=== PATIENT | male | born 1945 | race Caucasian/White ===

== ENCOUNTER → 2017-07-08 | Outpatient (CLI) | payer MEDICARE, OTHER ==
[~2017-07-08] MED LIST: ASPI-630 PO; BEVA25VI IV; DIGO0.12 PO; WARF1TAB74 PO
--- NOTE | 2017-07-08 09:16 | RAD ---
Examination: 2 views of the chest History: History of chest ingestion Comparison: 10/09/2069 Findings: Unchanged cardiomegaly. Mild prominent appearing bilateral interstitial lung markings likely congestive changes or interstitial infiltrates identified. Small bilateral pleural effusions. Impression: 1. Prominent appearing interstitial lung markings likely congestive changes or interstitial infiltrates with small bilateral pleural effusions.
== END | disposition home or self-care (01) ==
LOC: DXRADRC 07:47
PROVIDERS: ATTEND Physician Assistant Medical
DX: I51.7 Cardiomegaly (principal); J90 Pleural effusion, not elsewhere classified; R05 Cough
CPT/HCPCS: 71020

== ENCOUNTER → 2017-08-04 | Outpatient (CLI) | payer MEDICARE, OTHER ==
--- NOTE | 2017-08-04 09:12 | RAD ---
EXAM: Chest 2 views. HISTORY: Hemoptysis, smoking history. COMPARISON: 07/08/2017. FINDINGS: Frontal and lateral views of the chest are obtained. There are small bilateral pleural effusions with bibasilar atelectasis or infiltrate. Previously noted interstitial infiltrates are improved. Chronic obstructive pulmonary disease is again noted. There is no pneumothorax. The heart is mildly to moderately enlarged. There are atherosclerotic calcifications of the aorta. Small radiopaque foreign bodies project along the right chest. IMPRESSION: 1. Small bilateral pleural effusions with right greater than left basilar atelectasis or infiltrate. 2. Chronic obstructive pulmonary disease. 3. Mild to moderate cardiomegaly.
== END | disposition home or self-care (01) ==
LOC: DXRAD 08:23
PROVIDERS: ATTEND Physician Assistant Medical
DX: J44.9 Chronic obstructive pulmonary disease, unspecified (principal); I51.7 Cardiomegaly; J90 Pleural effusion, not elsewhere classified; I70.0 Atherosclerosis of aorta; Z87.891 Personal history of nicotine dependence
CPT/HCPCS: 71020

== ENCOUNTER 2020-06-20 17:02 | Inpatient (IN) | payer MEDICARE, OTHER ==
[~2020-06-20] VITALS: Ht 167.6 cm; Wt 70.5 kg
[~2020-06-20 17:02] MED LIST changes: -DIGO0.12 PO; +DIGO50SO PO; +WARF1TAB2 PO; -WARF1TAB74 PO
[2020-06-20] MEDS ORDERED: IOHEXOL 350 MG/ML 100 ML VIAL. IV ONE (18:00)
[2020-06-20] MEDS ORDERED: ASPIRIN 325 MG TABLET PO ONE (18:00)
[2020-06-20] MEDS ORDERED: DEXAMETHASONE SOD PHOS 10 MG/ML VIAL. IV ONE (18:05)
[2020-06-20] MEDS ORDERED: CONTRAST GIVEN. MC PRN (18:15)
--- NOTE | 2020-06-20 18:29 | PHYS DOC ---
Past History Past Medical History: A-Fib, Cancer, CHF, COPD, High Cholesterol, Heart Disease Additional Past Medical Histor: Lung cancer, bladder cancer, right sided pleural effusion Past Surgical History: Cancer Surgery, Cholecystectomy Additional Past Surgical Histo: Defibrillator, angioplasty, thorocentesis Smoking: Cigarettes Alcohol Use: Sober Drug Use: None General Adult EDM: Chief Complaint: SHORTNESS OF BREATH HPI: HPI: Patient is a 75-year-old male with a history of CHF, afib on Xarelto, COPD, and lung cancer who presents to the emergency department with shortness of breath that started around 4 PM today. Patient states he was sitting in his couch at the time when it started. He denies any fevers, chest pain, or cough. He is known to have fluid in his right lung, which was seen on a CT scan done 2 months ago and this is being followed by Dr. 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 He states he had a thoracentesis performed 4 years ago where they removed 1 L of fluids from the right side. Denies any recent exposure to COVID, recent travel, or recent surgery. Review of Systems: Review of Systems: Constitutional: Denies fever or chills Eyes: Denies redness or eye pain HENT: Denies nasal congestion or sore throat, reports rhinitis Respiratory: Denies cough, reports shortness of breath Cardiovascular: Denies chest pain or palpitations GI: Denies abdominal pain, nausea, or vomiting : Denies dysuria or hematuria Musculoskeletal: Denies back pain or joint pain, reports bilateral edema in lower extremities and chronic peripheral neuropathy in the soles of both feet Integument: Denies rash or skin lesions Neurologic: Denies headache, focal weakness, reports bilateral chronic peripheral neuropathy in his feet Complete systems were reviewed and found to be within normal limits, except as documented in this note. Heart Score: HEART Score for Chest Pain: HEART Score for Chest Pain Response (Comments) Value History Slighlty/Non-Suspicious 0 ECG Normal 0 Age > 65 2 Risk Factors >3 Risk Factors or Hx CAD 2 Troponin < Normal Limit 0 Total 4 Risk Factors: Risk Factors: DM, Current or recent (<one month) smoker, HTN, HLP, family history of CAD, obesity. Risk Scores: Score 0 - 3: 2.5% MACE over next 6 weeks - Discharge Home Score 4 - 6: 20.3% MACE over next 6 weeks - Admit for Clinical Observation Score 7 - 10: 72.7% MACE over next 6 weeks - Early Invasive Strategies Current Medications: Current Meds: Current Medications Medications (Trade) Dose Ordered Sig/Dewey Start Time Stop Time Status Last Admin Dose Admin Aspirin (Pao Aspirin) 325 mg 1X ONCE 06/20/20 18:00 06/20/20 18:05 DC Dexamethasone Sodium Phosphate (Decadron) 10 mg 1X ONCE 06/20/20 18:05 06/20/20 18:06 DC Info (Do NOT chart on this entry -- for MONITORING) 1 each PRN DAILY PRN 06/20/20 18:15 06/22/20 18:14 Iohexol (Omnipaque 350 Mg/ml) 100 ml 1X ONCE 06/20/20 18:00 06/20/20 18:05 DC Allergies: Allergies: Allergies Coded Allergies Type Severity Reaction Last Updated Verified influenza virus vaccine, specific Allergy Intermediate 06/20/20 Yes varenicline Allergy Unknown Unknown 06/20/20 Yes Physical Exam: PE: Constitutional: Well developed, elderly, cachetic, no acute distress, non-toxic appearance HENT: Normocephalic, atraumatic Eyes: Conjunctiva normal, no discharge Neck: Normal range of motion, no tenderness, supple Lungs & Thorax: No respiratory distress, equal chest rise and fall, crackles heard in right lower lobe, diffuse wheezing heard in lungs bilaterally Abdomen: Soft, no tenderness Skin: Warm, dry, no erythema, no rash Extremities: No tenderness, ROM intact, pitting edema to bilateral lower extremities, dorsalis pedis pulse 3/4 bilaterally Neurologic: Alert and oriented X 3, normal motor function, normal sensory function, no focal deficits noted Psychologic: Affect normal, judgment normal Current Patient Data: Vital Signs: Vital Signs Date Time Temp Pulse Resp B/P (MAP) Pulse Ox O2 Delivery O2 Flow Rate FiO2 06/20/20 17:42 98.6 96 28 122/64 (83) 96 Room Air EKG: EKG: @1833 NSR at 96bpm with frequent PVCs, NO ST elevation, QRS 86ms, QT/QTc 362/458ms Radiology/Procedures: Radiology/Procedures: PROCEDURE: CHEST PA & LATERAL Two-view chest dated 06/20/2020. Comparison made to 08/04/2017. Clinical data indication: Coughing up blood. FINDINGS: PA and lateral views obtained. Heart size mildly enlarged, stable. There is been interval placement of dual lead left subclavian pacer/AICD. Patchy and linear perihilar opacities are similar to prior study. There is blunting of the right costophrenic sulcus, unchanged. No pneumothorax. IMPRESSION:. 1. Perihilar airspace disease, similar to prior study. This could be related to chronic changes or recurrent pneumonia. 2. Small right pleural effusion versus chronic pleural thickening. Electronically signed by: Prasanth Garner MD (06/20/2020 8:53 PM) [facility] [place] SIGNED BY: PRASANTH GARNER MD DATE: 06/20/202052 Course & Med Decision Making: Course & Med Decision Making Pertinent Labs and Imaging studies reviewed. (See chart for details) Patient is a 75-year-old male with a history of CHF, A. fib, COPD, and lung cancer who presents to the emergency department with shortness of breath that started today. I highly suspect patient presents with an exacerbation of his CHF, which may have contributed to the fluid build up in his right lung. Labs showed elevated BNP, lactic acidosis, anemia, and renal insufficiency (unclear baseline given lack of prior labs per [facility] review). Bumex provided. ASA given. Will trend troponins. Hypomagnesemia addressed. Patient requiring admission for further evaluation and treatment. Discussed with Dr. Petersen (hospitalist) who is in agreement with admission. Discussed findings and plan with patient, who acknowledges understanding and agreement. Joyce Disclaimer: Joyce Disclaimer: This electronic medical record was generated, in whole or in part, using a voice recognition dictation system. Departure Departure: Impression: Primary Impression: Dyspnea Qualified Codes: R06.00 - Dyspnea, unspecified Additional Impressions: COPD (chronic obstructive pulmonary disease) Qualified Codes: J44.9 - Chronic obstructive pulmonary disease, unspecified Pleural effusion Hypomagnesemia Lactic acidosis Anemia Qualified Codes: D64.9 - Anemia, unspecified Renal insufficiency Disposition: ADMITTED INPATIENT Admitting Physician: Sary Petersen Condition: STABLE Referrals: TAM LING (PCP) PRASANTH KAHN DO Jun 20, 2020 18:29
[2020-06-20 18:48] LABS: CALCIUM 8.9 mg/dL (8.5-10.1); CREATININE 1.9 mg/dL (0.7-1.3); GFR 34.5; POTASSIUM 4.3 mmol/L (3.5-5.1)
[2020-06-20 19:00] LABS: BASO % 1 % (0-3); EOS % 0 % (0-3); HEMATOCRIT 32.2 % (39.0-53.0); HEMOGLOBIN 9.5 g/dL (13.0-17.5); LYMPH % 19 % (24-48); MEAN CORPUSCULAR HEMOGLOBIN 22 pg (25-35); MEAN CORPUSCULAR HGB CONC 30 g/dL (31-37); MEAN CORPUSCULAR VOLUME 73 fL (79-100); MONO # 0.9 x10^3/uL (0.0-1.1); MONO % 17 % (0-9); NEUT # 3.3 x10^3uL (1.8-7.7); NEUT % 63 % (31-73); PLATELET COUNT 156 x10^3/uL (140-400); RED BLOOD COUNT 4.43 x10^6/uL (4.30-5.70); RED CELL DISTRIBUTION WIDTH 20.5 % (11.5-14.5); WHITE BLOOD COUNT 5.2 x10^3/uL (4.0-11.0)
[2020-06-20 19:04] LABS: ALBUMIN 3.1 g/dL (3.4-5.0); ALBUMIN/GLOBULIN RATIO 0.9 (1.0-1.7); MAGNESIUM 1.6 mg/dL (1.8-2.4); TOTAL BILIRUBIN 0.8 mg/dL (0.2-1.0); TOTAL PROTEIN 6.6 g/dL (6.4-8.2)
[2020-06-20] MEDS ORDERED: MAGNESIUM SULFATE 2GM 50 ML IV ONE (19:30)
[2020-06-20 20:29] LABS: ANISOCYTOSIS MOD; HYPOCHROMIA SLIGHT; PLT ESTIMATE ADEQUATE (ADEQUATE)
[2020-06-20 20:30] LABS: MICROCYTOSIS SLIGHT
--- NOTE | 2020-06-20 20:55 | RAD ---
Two-view chest dated 06/20/2020. Comparison made to 08/04/2017. Clinical data indication: Coughing up blood. FINDINGS: PA and lateral views obtained. Heart size mildly enlarged, stable. There is been interval placement of dual lead left subclavian pacer/AICD. Patchy and linear perihilar opacities are similar to prior study. There is blunting of the right costophrenic sulcus, unchanged. No pneumothorax. IMPRESSION:. 1. Perihilar airspace disease, similar to prior study. This could be related to chronic changes or recurrent pneumonia. 2. Small right pleural effusion versus chronic pleural thickening. Electronically signed by: Prasanth Garner MD (06/20/2020 8:53 PM) [facility]
--- NOTE | 2020-06-20 21:03 | EKG ---
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
[2020-06-20] MEDS ORDERED: BUMETANIDE 1 MG/4 ML VIAL. IVP ONE (22:00)
[2020-06-20 22:07] LABS: BILIRUBIN,URINE NEG (NEG); CLARITY,URINE CLEAR; COLOR,URINE YELLOW; GLUCOSE,URINE NEG (NEG)
[2020-06-20 22:08] LABS: BACTERIA,URINE 0 /HPF (0-FEW); NITRITE,URINE NEG (NEG); RBC,URINE 0 /HPF (0-2); WBC,URINE OCC /HPF (0-4)
[2020-06-20] MEDS ORDERED: ONDANSETRON PF 4 MG/2 ML VIAL. IVP PRN (22:15)
[2020-06-20] MEDS ORDERED: ACETAMINOPHEN 325 MG TABLET PO PRN (22:15)
[2020-06-20 23:56] VITALS: BP 94/59
--- NOTE | 2020-06-21 03:55 | NUR ---
The patient, OMA AKBAR, 75 y/o, M admitted by GRANT FLORES MD, was given written information regarding hospital policies, unit procedures and contact persons. Valuables were checked and noted. PT presented with increased SOB. PT states he had a thoracentesis years ago and feels the same way now. PT with multiple falls in the past month. PT states he broke his nose on a fall last week. PT uses a walker on occasion at home. Walker placed in room. PT states his falls are the result of "spacing out" and coming back during the fall. PT has a referral to Neurology for this placed by PCP as an outpatient; referral made 06/19 according to PT. Reviewed with PT his PMH, PSH, FH, SH and medications. PT unsure of current medications and asked for us to telephone his son. Expressed we will be able to do that this morning. PT states he has restless legs and can only get 1-2 hours of sleep at a time with the need to stand to relieve this.
[2020-06-21 05:19] VITALS: BP 100/67
[2020-06-21] MEDS ORDERED: IV NORMAL SALINE 1,000ML 1,000 ML IV ONE (07:00)
[2020-06-21] MEDS ORDERED: AZITHROMYCIN 250 MG TABLET. PO ONE (07:00)
[2020-06-21] MEDS ORDERED: IV NORMAL SALINE 1,000ML 1,000 ML IV SCH (08:00)
[2020-06-21] MEDS: IPRATRPIUM/ALBUTEROL 0.5/2.5MG 3 ML NEBU. NEB SCH ×5 (08:00→20:00)
[2020-06-21 10:36] VITALS: BP 97/60
[2020-06-21] MEDS ORDERED: RIVA20TA2 PO (10:52)
[2020-06-21] MEDS ORDERED: FURO20TA3 PO (10:52)
[2020-06-21] MEDS ORDERED: TAMS0.4C97 PO (10:52)
[2020-06-21] MEDS ORDERED: ROPI0.254 PO (10:52)
[2020-06-21] MEDS ORDERED: DICY10CA3 PO (10:52)
[2020-06-21] MEDS ORDERED: BUPR150T11 PO (10:52)
[2020-06-21] MEDS ORDERED: ATORVASTATIN CA80 MG PO (10:52)
[2020-06-21] MEDS ORDERED: FINA5TAB4 PO (10:52)
[2020-06-21] MEDS ORDERED: BISA5TAB4 PO (10:52)
[2020-06-21] MEDS ORDERED: LISI2.5T PO (10:52)
[2020-06-21] MEDS ORDERED: DIGO125T17 PO (10:52)
[2020-06-21] MEDS ORDERED: MV-M1TAB7 PO (10:52)
[2020-06-21] MEDS ORDERED: IBUP400T18 PO (10:52)
[2020-06-21] MEDS ORDERED: MELA3TAB4 PO (10:52)
[2020-06-21] MEDS ORDERED: EZET10TA20 PO (10:52)
[2020-06-21] MEDS: LORazepam 0.5 MG TABLET PO PRN ×2 (12:35→21:33)
--- NOTE | 2020-06-21 12:39 | NUR ---
NURSING NOTE PT C/O BEING ANXIOUS, SHAKING, AND STATES AT HOME HE GETS THIS WAY AND THEN CANT BREATHE, STATES HE KNEELS ON THE FLOOR UNTIL IT PASSES. DR FLORES NOTIFIED. ORDERS OBTAINED TO GIVE ATIVAN 0.5MG BY MOUTH PRN Q6 HOURS AND TO ORDER VENOUS DOPPLER BILATERAL BECAUSE PT DID COMPLAIN OF LEG PAIN TO THIS NURSE THIS AM. WILL CONTINUE TO MONITOR. AL SINGLETON.
[2020-06-21] MEDS ORDERED: methylPREDNISolone SOD SUCC PF 40 MG/ML VIAL. IV SCH (14:00)
[2020-06-21 14:25] VITALS: BP 90/59
--- NOTE | 2020-06-21 16:22 | RAD ---
VENOUS LOWER EXT BILATERAL History: Reason: PAIN, SWELLING / Spl. Instructions: / History: Comparison: None. Discussion: Multiple longitudinal and transverse high resolution real-time images of the venous system of bilateral lower extremity were obtained with color and Doppler sampling. The common femoral, superficial femoral, popliteal and proximal calf veins are all patent and demonstrate normal flow and compressibility. Normal respiratory phasicity and augmentation is present. Calf veins are poorly visualized due to lower extremity subcutaneous edema. Impression: 1. No evidence of deep vein thrombosis. Electronically signed by: Praveen Willoughby DO (06/21/2020 4:19 PM) [id number]
[2020-06-21] MEDS: RIVAROXABAN 10 MG TABLET. PO SCH (16:39)
--- NOTE | 2020-06-21 17:58 | HP ---
ADMIT DATE: 06/20/2020 HISTORY OF PRESENT ILLNESS: The patient is a 75-year-old male patient who presented to the Emergency Room with complaint of shortness of breath that started around 04:00 p.m. yesterday afternoon, he stated that ____ was sitting in his couch at the time it started. He denies any fever, chest pain or cough. 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 He states he had had thoracentesis performed 4 years ago where they removed 1 liter of fluid from the right side. He denied any recent exposure to COVID, recent travel or recent surgery. He was extensively investigated in the Emergency Room, has had lab work as well as imaging studies. His chest x-ray showed the patient has perihilar airspace disease similar to prior study. This could be related to chronic changes or recurrent pneumonia, small right-sided pleural effusion versus chronic pleural thickening. The patient was admitted with dyspnea, chronic obstructive pulmonary disease, hypomagnesemia, lactic acidosis, anemia, and renal insufficiency. PAST MEDICAL HISTORY: Significant for congestive heart failure, chronic obstructive pulmonary disease, hyperlipidemia, lung cancer, bladder cancer, chronic right-sided pleural effusion, atrial fibrillation. PAST SURGICAL HISTORY: Significant for transurethral resection of the bladder cancer twice and cholecystectomy. He has also had defibrillation, AICD, angioplasty as well as thoracentesis. 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 He did have also a colonoscopy and bronchoscopy. ALLERGIES: HE IS ALLERGIC TO FLU SHOT AND CHANTIX, HAS BECOME VIOLENT TWICE WHENEVER HE TRIED IT. MEDICATIONS: He is currently on following medications: He is on dicyclomine 10 mg as needed daily, tamsulosin 0.4 mg at bedtime, rivaroxaban 20 mg daily, digoxin 0.25 mg once a day. He is on Zetia 10 mg once a day, atorvastatin 80 mg at bedtime, lisinopril 2.5 mg once a day, ibuprofen 400 mg 3 times a day, Wellbutrin 150 mg twice a day, ropinirole 0.5 mg at bedtime, furosemide 20 mg twice a day, bisacodyl 5 mg daily, vitamin D3 1 tablet once a day, finasteride 5 mg daily, and melatonin 3 mg at bedtime. FAMILY HISTORY: He has 4 brothers and 4 sisters. Father at the age of 39 because of myocardial infarction. Mother at age of 52 because of motor vehicle accident. SOCIAL HISTORY: He is , currently lives with his son. He used to smoke 1-1/2 pack a day, now he smokes only 1 pack a day. He does not drink alcohol or use recreational drugs. He worked in the [employer] for 29 years. He also worked for [employer] for 18 years. He is currently retired. REVIEW OF SYSTEMS: As per history of present illness. PHYSICAL EXAMINATION: GENERAL: On arrival to the Emergency Room, the patient was somewhat tachypneic and pale, but no jaundice, cyanosis or thyromegaly. No jugular venous distention. No lower limb edema. VITAL SIGNS: His heart rate on arrival was 96, blood pressure was 122/64, temperature was 98.6, respiratory rate was 28 and oxygen saturation was 96%. HEAD, EYES, EARS, NOSE AND THROAT: Showed normocephalic, atraumatic. NECK: Supple. HEART: Showed normal first and second heart sounds. No gallop, rub or murmur. CHEST: Clear to auscultation. No crepitation or rhonchi. ABDOMEN: Distended, soft, nontender. No guarding or rigidity. No organomegaly. All hernial orifices intact. Bowel sounds normal. NEUROLOGIC: He was awake, alert, responding appropriately. All cranial nerves intact. EXTREMITIES: He moves extremities without difficulty. LABORATORY DATA: His lab work on arrival showed a white cell count of 5200, hemoglobin 9.5, hematocrit 32, MCV 73, and platelet count of 156,000. Serum sodium was 138, potassium 4.3, chloride 101, bicarbonate 27, anion gap of 10, BUN 37, creatinine 1.9, estimated GFR was at 34 mL per minute. His glucose 124, lactic acid was 2.8, calcium was 8.9, magnesium was 1.6. Total bilirubin and alkaline phosphatase normal. AST, ALT slightly elevated. Beta-natriuretic peptide was 11,943. Total protein was 6.6, albumin 3.1. Troponin was 0.040. His prothrombin time was 14.7, INR 1.4, aPTT was 27. Urinalysis was essentially unremarkable. His chest x-ray showed the patient has perihilar airspace disease similar to prior study. This could be related to chronic changes of recurrent pneumonia, small right-sided pleural effusion versus chronic pleural thickening. ASSESSMENT AND PLAN: The patient was admitted and was started on ceftriaxone as well as Zithromax. I reconciled all his medication. We did give him IV fluid together with methylprednisolone, albuterol, and Atrovent and ____ severe anxiety; in fact, he was admitted initially without any steroids or albuterol. We will monitor him closely and decide on further management accordingly. GRANT FLORES MD DR: CASSI/harmony JOB#: [id number] / [id number]
[2020-06-21 19:15] VITALS: BP 93/67
[2020-06-21] MEDS: rOPINIRole 0.25 MG TABLET. PO SCH (21:00)
[2020-06-21] MEDS: MELATONIN 3 MG TABLET PO SCH (21:31)
[2020-06-21] MEDS: LACTOBACILLUS RHAMNOSUS GG 1 CAPSULE. PO SCH (21:31)
[2020-06-21] MEDS: TAMSULOSIN 0.4 MG CAP.ER.24H. PO SCH (21:32)
[2020-06-21] MEDS: ATORVASTATIN CALCIUM 20 MG TABLET PO SCH (21:32)
[2020-06-21] MEDS: buPROPion SR 150 MG TABLET.SA PO SCH (21:32)
[2020-06-21 22:45] VITALS: BP 116/81
--- NOTE | 2020-06-21 22:51 | PN ---
DATE: 06/21/2020 SUBJECTIVE: The patient is sitting on the edge of the bed comfortably, in no apparent respiratory distress. He did have severe anxiety this morning and he apparently has had these episodes before. We did give him some Ativan and that really helped him down. When I saw him, he was sitting in his chair comfortably in no apparent respiratory distress. PHYSICAL EXAMINATION: GENERAL: He was pale, but no jaundice, cyanosis or thyromegaly. No jugular venous distention or limb edema. VITAL SIGNS: His heart rate was 92, blood pressure was 97/60, temperature 98.2, respiratory rate 24 and oxygen saturation was 96% on room air. HEAD, EYES, EARS, NOSE AND THROAT: Showed normocephalic, atraumatic. NECK: Supple. HEART: Showed normal first and second heart sounds. No gallop, rub or murmur. CHEST: Shows central trachea, equal bilateral expansion, air entry. Dull percussion noted and absent breath sounds posteriorly on the right side mostly. I could not really appreciate any crepitation or rhonchi. ABDOMEN: Distended, soft, nontender. NEUROLOGIC: He was awake, alert, responding appropriately. LABORATORY DATA: No lab works were done this morning. ASSESSMENT: 1. Probably Community-acquired pneumonia. 2. Chronic obstructive pulmonary disease exacerbation. 3. Acute on chronic congestive heart failure. 4. Lactic acidosis. 5. He has atrial fibrillation, rate controlled, well anticoagulated. 6. He has lung cancer, he was diagnosed in 03/2019 and was treated initially with radiation therapy x 6 and has been receiving chemotherapy once every 4 weeks. The last one was about 3 weeks ago. 7. He has had also history of bladder cancer treated with the surgical resection twice and has persistent or chronic right-sided pleural effusion. PLAN: My plan is to discontinue the steroids and bronchodilators for some reason they induce severe anxiety in him. Continue with IV antibiotic. Continue with all his other medications. GRANT FLORES MD DR: CASSI/harmony JOB#: [id number] / [id number]
[2020-06-22] MEDS: IPRATRPIUM/ALBUTEROL 0.5/2.5MG 3 ML NEBU. NEB SCH (05:31)
[2020-06-22 05:42] VITALS: BP 89/66
[2020-06-22 06:59] LABS: HEMATOCRIT 28.5 % (39.0-53.0); HEMOGLOBIN 8.4 g/dL (13.0-17.5); RED BLOOD COUNT 3.88 x10^6/uL (4.30-5.70); RED CELL DISTRIBUTION WIDTH 20.4 % (11.5-14.5); WHITE BLOOD COUNT 10.1 x10^3/uL (4.0-11.0)
[2020-06-22 07:22] LABS: ALBUMIN 2.9 g/dL (3.4-5.0); CALCIUM 8.6 mg/dL (8.5-10.1); CREATININE 1.7 mg/dL (0.7-1.3); GFR 39.3; POTASSIUM 4.3 mmol/L (3.5-5.1); TOTAL BILIRUBIN 0.6 mg/dL (0.2-1.0); TOTAL PROTEIN 5.9 g/dL (6.4-8.2)
[2020-06-22] MEDS ORDERED: LISINOPRIL 2.5 MG TABLET PO SCH (09:00)
[2020-06-22] MEDS ORDERED: NON FORMULARY ITEM (Mv-Mn/Iron/Fa/Herbal Cmplx#190 (Vitamin D3 Complete Caplet) 1 EACH) PO SCH (09:00)
[2020-06-22] MEDS: buPROPion SR 150 MG TABLET.SA PO SCH ×2 (10:12→21:36)
[2020-06-22] MEDS: BISACODYL TAB 5 MG TABLET.DR. PO SCH (10:13)
[2020-06-22] MEDS: AZITHROMYCIN 250 MG TABLET. PO SCH (10:13)
[2020-06-22] MEDS: FINASTERIDE 5 MG TABLET. PO SCH (10:13)
[2020-06-22] MEDS: EZETIMIBE 10 MG TABLET PO SCH (10:13)
[2020-06-22] MEDS: LACTOBACILLUS RHAMNOSUS GG 1 CAPSULE. PO SCH ×2 (10:13→21:36)
[2020-06-22] MEDS: POLYETHYLENE GLYCOL 3350 17 GM PACKET. PO SCH (10:49)
[2020-06-22 10:51] VITALS: BP 94/62
[2020-06-22 14:16] VITALS: BP 92/61
[2020-06-22] MEDS: RIVAROXABAN 10 MG TABLET. PO SCH (16:45)
[2020-06-22 19:00] VITALS: BP 94/61
[2020-06-22] MEDS ORDERED: BISACODYL TAB 5 MG TABLET.DR. PO PRN (19:00)
--- NOTE | 2020-06-22 19:49 | PN ---
DATE: 06/22/2020 SUBJECTIVE: The patient is sitting at the edge of the bed comfortably, complaining of just being cold. He continued to have cough that is mostly dry, hacking, and nonproductive. Denied any chest pain. He continued to complain of weakness and shortness of breath. His blood pressure unfortunately is very borderline and so we could not give him any Lasix. PHYSICAL EXAMINATION: GENERAL: When I examined him this afternoon, he looked pale, but no jaundice, cyanosis or thyromegaly. No jugular venous distention. No limb edema. VITAL SIGNS: His heart rate was 86, blood pressure was 92/61, temperature was 97, respiratory rate was 24, and oxygen saturation was 92% on room air. HEAD, EYES, EARS, NOSE AND THROAT: Showed normocephalic, atraumatic. NECK: Supple. CARDIAC: Normal first and second heart sounds. No gallop, rub or murmur. CHEST: Shows central trachea, good bilateral chest expansion, air entry anteriorly. There are decreased breath sounds and chest expansion. Dull percussion noted and absent breath sounds on the right side posteriorly. ABDOMEN: Distended, soft, nontender. NEUROLOGIC: He was grossly intact. His intake was incompletely recorded as well as his output. LABORATORY DATA: Her lab work this morning showed a serum sodium 136, potassium 4.3, chloride 102, bicarbonate 23, anion gap of 11, BUN 51, and creatinine was 1.7. His estimated GFR was 39 mL per minute. His glucose was 96, lactic acid was 3.4, and calcium was 8.6. Total bilirubin and alkaline phosphatase are normal. AST and ALT were elevated and rising. His beta natriuretic peptide was 11,517. He has 3 sets of troponin that was elevated at 0.040, 0.042 and 0.041. His chest x-ray showed that he has perihilar airspace disease similar to prior studies could be related to chronic change or recurrent pneumonia, small right sided pleural effusion versus chronic pleural thickening. The patient said that he has had a thoracentesis about 4 years ago where they drained about 1 liter and has not had any thoracentesis since then. ASSESSMENT: 1. Probably Community-acquired pneumonia. 2. Chronic obstructive pulmonary disease exacerbation. 3. Acute on chronic congestive heart failure. 4. Lactic acidosis. 5. Atrial fibrillation, rate controlled, well anticoagulated. 6. He has lung cancer was diagnosed in 03/2019 and was treated initially with radiation therapy x 6, has been receiving chemotherapy once every 4 weeks. The last one was about 3 weeks ago. 7. History of bladder cancer treated with surgical resection twice. 8. He has persistent chronic sided pleural effusion. PLAN: I discontinued his steroids and bronchodilators as they induced severe anxiety in him. Continue with IV antibiotic. I will discontinue his lisinopril. I will consult the Cardiology to assist with the management. GRANT FLORES MD DR: CASSI/harmony JOB#: [id number] / [id number]
[2020-06-22] MEDS: rOPINIRole 0.25 MG TABLET. PO SCH (21:36)
[2020-06-22] MEDS: LORazepam 0.5 MG TABLET PO PRN (21:36)
[2020-06-22] MEDS: MELATONIN 3 MG TABLET PO SCH (21:36)
[2020-06-22] MEDS: TAMSULOSIN 0.4 MG CAP.ER.24H. PO SCH (21:36)
[2020-06-22] MEDS: ATORVASTATIN CALCIUM 20 MG TABLET PO SCH (21:36)
[2020-06-23 00:01] VITALS: BP 90/57
--- NOTE | 2020-06-23 03:49 | NUR ---
PT UP IN CHAIR FOR ASSESSMENT AND MEDICATION ADMINISTRATION. PT WAS COMPLAINT AND COOPERATIVE THIS HS. PT HAD CONCERNS ABOUT HIS COUGH. RN EDUCATED PT ON DRINKING ENOUGH WATER TO HELP THIN MUCOUS IN HIS CHEST. PT STATED TO RN HE IS DRINKING PLENTY OF FLUIDS. PT DID HAVE AN INTERMITTENT COUGH THROUGH THE NIGHT. PT IS CURRENTLY RESTING IN BED. WILL CONTINUE TO MONITOR.
[2020-06-23 06:16] VITALS: BP 93/69
[2020-06-23 07:17] LABS: CREATININE 1.5 mg/dL (0.7-1.3); GFR 45.4; POTASSIUM 4.5 mmol/L (3.5-5.1)
[2020-06-23] MEDS: AZITHROMYCIN 250 MG TABLET. PO SCH (08:57)
[2020-06-23] MEDS: buPROPion SR 150 MG TABLET.SA PO SCH ×2 (08:57→22:23)
[2020-06-23] MEDS: LACTOBACILLUS RHAMNOSUS GG 1 CAPSULE. PO SCH ×2 (08:57→22:23)
[2020-06-23] MEDS: BISACODYL TAB 5 MG TABLET.DR. PO SCH (08:58)
[2020-06-23] MEDS: EZETIMIBE 10 MG TABLET PO SCH (08:58)
[2020-06-23] MEDS: POLYETHYLENE GLYCOL 3350 17 GM PACKET. PO SCH (08:58)
[2020-06-23] MEDS: FINASTERIDE 5 MG TABLET. PO SCH (08:58)
[2020-06-23 11:04] VITALS: BP 87/59
--- NOTE | 2020-06-23 13:28 | PN ---
DATE: 06/23/2020 SUBJECTIVE: The patient is sitting on the edge of the bed, eating his lunch comfortably, in no apparent distress. He is now complaining of swelling of his scrotum and his penis as well as continued swelling of both legs. Unfortunately, even despite stopping his lisinopril, his blood pressure is only 87/59, although the patient himself did not complain of any dizziness and that obviously precludes our ability to give him any Lasix. PHYSICAL EXAMINATION: GENERAL: When I examined him this afternoon, he looked pale, but no jaundice, cyanosis or thyromegaly. No jugular venous distention. No limb edema. VITAL SIGNS: His heart rate was 74, blood pressure was 87/59, temperature was 97.6, respiratory rate was 16, and oxygen saturation was 91% on room air. HEAD, EYES, EAR, NOSE, AND THROAT: Showed normocephalic, atraumatic. NECK: Supple. HEART: Showed normal first and second heart sounds. No gallop or murmur. CHEST: Shows central trachea, equal bilateral expansion, air entry, vesicular sounds. No crepitation or rhonchi anteriorly, has dull percussion noted and absent breath sounds on the right side posteriorly. ABDOMEN: Slightly distended, soft, nontender. NEUROLOGIC: He is grossly intact. His intake over the last 24 hours was 760, output was 325. LABORATORY DATA: As of this morning showed a serum sodium 135, potassium 4.5, chloride 101, bicarbonate 26, anion gap of 8, BUN 54, creatinine 1.5, estimated GFR was 45 mL per minute, his glucose 97, calcium was 8. His white cell count was 10,000, hemoglobin 8.4, hematocrit 28.5, MCV 73 and platelet count of 123,000. ASSESSMENT: 1. Community-acquired pneumonia, for which he continues to be on IV antibiotic. 2. Chronic obstructive pulmonary disease exacerbation. 3. Acute on chronic congestive heart failure. 4. Lactic acidosis, resolved. 5. Atrial fibrillation, rate controlled, well anticoagulated. 6. The patient has lung cancer that was diagnosed in 03/2019, was treated initially with radiation therapy x 6, has been receiving chemotherapy once every 4 weeks. The last one was about 3 weeks ago. 7. History of bladder cancer treated with surgical resection twice. 8. He has had persistent chronic right-sided pleural effusion. PLAN: To continue with IV antibiotic. I discontinued his lisinopril. I did consult the Cardiology to assist in management. I will add midodrine to see whether that will help his blood pressure and allow us to treat him Lasix. GRANT FLORES MD DR: CASSI/harmony JOB#: [id number] / [id number]
[2020-06-23 14:43] VITALS: BP 96/63
--- NOTE | 2020-06-23 15:35 | PDOC2 ---
CONSULT DOS: DATE: 06/23/20 TIME: 15:26 Reason for Consult: CHF, A fib., Device Referring Physician: Dr. Petersen Chief Complaint Shortness of breath Source: Chart review, Patient Problem List Problems Medical Problems: (1) Anemia Status: Acute (2) COPD (chronic obstructive pulmonary disease) Status: Acute (3) Dyspnea Status: Acute (4) Hypomagnesemia Status: Acute (5) Lactic acidosis Status: Acute (6) Pleural effusion Status: Acute (7) Renal insufficiency Status: Acute History of Present Illness The patient is a 75-year-old male who was originally admitted for increasing shortness of breath. He has been treated for exacerbation of COPD as well as community-acquired pneumonia. Additionally he has contributing heart factor failure and a history of lung cancer which he has been undergoing treatment for. From a cardiac viewpoint he has chronic atrial fibrillation treated with Xarelto as well as a history of coronary disease with previous interventions and a probable AICD. The patient reports feeling mildly better than yesterday. His shortness of breath has improved mildly. He denies chest pain. Cardiovascular: AFIB, CAD, CHF, HTN, hyperipidemia, Other (Probable AICD) Pulmonary: COPD, Pneumonia Heme/Onc: Cancer Renal/: Chronic renal insuff Past Surgical History: Cholecystectomy (Thoracentesis, peripheral arterial bypass surgery, cancer surgery, probable AICD.) Family History: Coronary Artery Disease, Hypertension Smoke: <1 pack per day ALCOHOL: other (Discontinued) Current Medications Current Medications Aspirin (Pao Aspirin) 325 mg 1X ONCE PO Last administered on 06/20/20at 19:24; Start 06/20/20 at 18:00; Stop 06/20/20 at 18:05; Status DC Dexamethasone Sodium Phosphate (Decadron) 10 mg 1X ONCE IV Last administered on 06/20/20at 19:24; Start 06/20/20 at 18:05; Stop 06/20/20 at 18:06; Status DC Iohexol (Omnipaque 350 Mg/ml) 100 ml 1X ONCE IV ; Start 06/20/20 at 18:00; Stop 06/20/20 at 18:05; Status DC Info (Do NOT chart on this entry -- for MONITORING) 1 each PRN DAILY PRN MC SEE COMMENTS; Start 06/20/20 at 18:15; Stop 06/22/20 at 18:14; Status DC Magnesium Sulfate 50 ml @ 25 mls/hr 1X ONCE IV Last administered on 06/20/20at 19:30; Start 06/20/20 at 19:30; Stop 06/20/20 at 21:29; Status DC Bumetanide (Bumex) 0.5 mg 1X ONCE IVP Last administered on 06/20/20at 22:23; Start 06/20/20 at 22:00; Stop 06/20/20 at 22:01; Status DC Ondansetron HCl (Zofran) 4 mg PRN Q4HRS PRN IVP NAUSEA/VOMITING; Start 06/20/20 at 22:15; Stop 06/21/20 at 22:14; Status DC Acetaminophen (Tylenol) 650 mg PRN Q4HRS PRN PO FEVER > 100.3'F Last administered on 06/21/20at 21:33; Start 06/20/20 at 22:15; Stop 06/21/20 at 22:14; Status DC Sodium Chloride 1,000 ml @ 1,000 mls/hr 1X ONCE IV Last administered on 06/21/20at 07:43; Start 06/21/20 at 07:00; Stop 06/21/20 at 07:59; Status DC Sodium Chloride 1,000 ml @ 100 mls/hr Q10H IV Last administered on 06/21/20at 07:48; Start 06/21/20 at 08:00; Stop 06/21/20 at 15:24; Status DC Albuterol/ Ipratropium (Duoneb) 3 ml RTQID NEB Last administered on 06/22/20at 05:31; Start 06/21/20 at 08:00; Stop 06/22/20 at 11:07; Status DC Ceftriaxone Sodium 1 gm/ Sodium Chloride 50 ml @ 100 mls/hr 1X ONCE IV Last administered on 06/21/20at 09:35; Start 06/21/20 at 09:00; Stop 06/21/20 at 09:29; Status DC Azithromycin (Zithromax) 500 mg 1X ONCE PO Last administered on 06/21/20at 07:43; Start 06/21/20 at 07:00; Stop 06/21/20 at 07:01; Status DC Azithromycin (Zithromax) 250 mg DAILY PO Last administered on 06/23/20 08:57; Start 06/22/20 at 09:00 Methylprednisolone Sodium Succinate (SOLU-Medrol 40MG VIAL) 40 mg Q8HRS IV ; Start 06/21/20 at 14:00; Stop 06/21/20 at 15:24; Status DC Lactobacillus Rhamnosus (Culturelle) 1 cap BID PO Last administered on 06/23/20 08:57; Start 06/21/20 at 21:00 Lorazepam (Ativan) 0.5 mg PRN Q6HRS PRN PO ANXIETY / AGITATION Last administered on 06/22/20 21:36; Start 06/21/20 at 12:45 Bisacodyl (Dulcolax Tab) 5 mg DAILY PO Last administered on 06/23/20 08:58; Start 06/22/20 at 09:00 Bupropion HCl (Wellbutrin Sr) 150 mg BID PO Last administered on 06/23/20 08:57; Start 06/21/20 at 21:00 EZETIMIBE (Zetia) 10 mg DAILY PO Last administered on 06/23/20 08:58; Start 06/22/20 at 09:00 Finasteride (Proscar) 5 mg DAILY PO Last administered on 06/23/20 08:58; Start 06/22/20 at 09:00 Lisinopril (Prinivil) 2.5 mg DAILY PO ; Start 06/22/20 at 09:00; Stop 06/22/20 at 16:38; Status DC Melatonin (Melatonin) 3 mg QHS PO Last administered on 06/22/20 21:36; Start 06/21/20 at 21:00 Ropinirole HCl (Requip) 0.25 mg QHS PO Last administered on 06/22/20 21:36; Start 06/21/20 at 21:00 Tamsulosin HCl (Flomax) 0.4 mg QHS PO Last administered on 06/22/20 21:36; Start 06/21/20 at 21:00 Atorvastatin Calcium (Lipitor) 80 mg QHS PO Last administered on 06/22/20 21:36; Start 06/21/20 at 21:00 Non-Formulary Medication (Mv-Mn/Iron/Fa/ Herbal Cmplx#190 (Vitamin D3 Complete C aplet)) 1 each DAILY PO ; Start 06/22/20 at 09:00; Stop 06/21/20 at 15:44; Status DC Rivaroxaban (Xarelto) 20 mg DAILYWSUP PO Last administered on 06/22/20at 16:45; Start 06/21/20 at 17:00 Polyethylene Glycol (miraLAX) 17 gm DAILY PO Last administered on 06/23/20at 08:58; Start 06/22/20 at 10:30 Bisacodyl (Dulcolax Tab) 10 mg PRN DAILY PRN PO CONSTIPATION Last administered on 06/22/20at 21:36; Start 06/22/20 at 19:00 Midodrine (Proamatine) 5 mg [id number] PO ; Start 06/23/20 at 13:00 Nystatin (Nystop) 1 félix BID TP ; Start 06/23/20 at 21:00 Active Scripts Active Reported Dicyclomine Hcl 10 Mg Capsule 10 Mg PO PRN DAILY PRN Xarelto (Rivaroxaban) 20 Mg Tablet 20 Mg PO DAILY Bupropion Hcl Sr (Bupropion Hcl) 150 Mg Tablet.er 150 Mg PO BID Vitamin D3 Complete Caplet (Mv-Mn/Iron/Fa/Herbal Cmplx#190) 1 Each Tablet 1 Each PO DAILY Lisinopril 2.5 Mg Tablet 2.5 Mg PO DAILY Zetia (Ezetimibe) 10 Mg Tablet 10 Mg PO DAILY Finasteride 5 Mg Tablet 5 Mg PO DAILY Furosemide 20 Mg Tablet 20 Mg PO BID Flomax (Tamsulosin Hcl) 0.4 Mg Cap.er.24h 0.4 Mg PO QHS Atorvastatin Calcium 80 Mg Tablet 80 Mg PO QHS Ibuprofen 400 Mg Tablet 400 Mg PO PRN TID PRN Bisacodyl 5 Mg Tablet.dr 5 Mg PO DAILY Melatonin 3 Mg Tablet 3 Mg PO QHS Ropinirole Hcl 0.25 Mg Tablet 0.25 Mg PO QHS Digox (Digoxin) 125 Mcg Tablet 125 Mcg PO DAILY Digoxin 0.125 Mg/2.5 Ml Solution 0.125 Mg PO Allergies: Coded Allergies: influenza virus vaccine, specific (Verified Allergy, Intermediate, 06/20/20) varenicline (Verified Allergy, Unknown, Unknown, 06/20/20) SI/HI General: YES: Fatigue Respiratory: YES: Shortness of breath General: mild distress HEENT: Atraumatic Lungs: Other (Decreased breath sounds) Heart: Other (Irregular rhythm) Abdomen: Normal bowel sounds VITALS Vital Signs Date Time Temp Pulse Resp B/P (MAP) Pulse Ox O2 Delivery O2 Flow Rate FiO2 06/23/20 14:43 94.7 99 20 96/63 (74) 99 Room Air Labs Laboratory Tests Test 06/21/20 20:15 06/22/20 06:26 06/23/20 06:38 Troponin I Quantitative 0.041 ng/mL (0-0.055) White Blood Count 10.1 x10^3/uL (4.0-11.0) Red Blood Count 3.88 x10^6/uL (4.30-5.70) Hemoglobin 8.4 g/dL (13.0-17.5) Hematocrit 28.5 % (39.0-53.0) Mean Corpuscular Volume 73 fL (79-100) Mean Corpuscular Hemoglobin 22 pg (25-35) Mean Corpuscular Hemoglobin Concent 30 g/dL (31-37) Red Cell Distribution Width 20.4 % (11.5-14.5) Platelet Count 123 x10^3/uL (140-400) Sodium Level 136 mmol/L (136-145) 135 mmol/L (136-145) Potassium Level 4.3 mmol/L (3.5-5.1) 4.5 mmol/L (3.5-5.1) Chloride Level 102 mmol/L (98-107) 101 mmol/L (98-107) Carbon Dioxide Level 23 mmol/L (21-32) 26 mmol/L (21-32) Anion Gap 11 (6-14) 8 (6-14) Blood Urea Nitrogen 51 mg/dL (8-26) 54 mg/dL (8-26) Creatinine 1.7 mg/dL (0.7-1.3) 1.5 mg/dL (0.7-1.3) Estimated GFR (Cockcroft-Gault) 39.3 45.4 BUN/Creatinine Ratio 30 (6-20) Glucose Level 98 mg/dL (70-99) 97 mg/dL (70-99) Calcium Level 8.6 mg/dL (8.5-10.1) 8.0 mg/dL (8.5-10.1) Total Bilirubin 0.6 mg/dL (0.2-1.0) Aspartate Amino Transf (AST/SGOT) 101 U/L (15-37) Alanine Aminotransferase (ALT/SGPT) 107 U/L (16-63) Alkaline Phosphatase 86 U/L (46-116) OA-Mtw-L-Type Natriuretic Peptide 17140 pg/mL (0-449) Total Protein 5.9 g/dL (6.4-8.2) Albumin 2.9 g/dL (3.4-5.0) Albumin/Globulin Ratio 1.0 (1.0-1.7) Images Chest x-ray with a small right-sided pleural effusion Assessment/Plan 1. Respiratory failure. Multiple contributing factors including exacerbation of COPD. Heart failure and pneumonia. The patient is gradually improving on antibiotics and present treatment. We will attempt to obtain old records. 2. Chronic atrial fibrillation. Rate controlled. On Xarelto. 3. Reported history of coronary artery disease. No chest pain. Patient has a probable AICD in place and will attempt to obtain further records. Minimally elevated troponin at 0.042 consistent with demand ischemia 4. Lung cancer. Patient is undergoing treatment. 5. Peripheral vascular disease. Status post vascular surgery. 6. Hyperlipidemia. Will check labs and continue medications. Thank you for allowing us to participate in the care of your patient. YASH COELLO MD Jun 23, 2020 15:35
[2020-06-23] MEDS: RIVAROXABAN 10 MG TABLET. PO SCH (16:17)
[2020-06-23] MEDS: MIDODRINE 5 MG TABLET PO SCH ×2 (16:17→18:16)
[2020-06-23 19:25] VITALS: BP 108/58
[2020-06-23] MEDS: NYSTATIN TOPICAL POWDER 15GM BOTTLE. TP SCH (21:00)
[2020-06-23] MEDS: TAMSULOSIN 0.4 MG CAP.ER.24H. PO SCH (22:23)
[2020-06-23] MEDS: MELATONIN 3 MG TABLET PO SCH (22:23)
[2020-06-23] MEDS: LORazepam 0.5 MG TABLET PO PRN (22:23)
[2020-06-23] MEDS: rOPINIRole 0.25 MG TABLET. PO SCH (22:23)
[2020-06-23] MEDS: ATORVASTATIN CALCIUM 20 MG TABLET PO SCH (22:23)
[2020-06-23 23:07] VITALS: BP 101/68
[2020-06-24 05:50] VITALS: BP 113/51
[2020-06-24] MEDS: LORazepam 0.5 MG TABLET PO PRN (06:25)
[2020-06-24 06:26] VITALS: BP 113/51
[2020-06-24] MEDS: MIDODRINE 5 MG TABLET PO SCH (06:26)
--- NOTE | 2020-06-24 06:47 | NUR ---
Pt states,"I feel bad all over. It's so cold, I just want to go home where it is warm." Pt had multiple episodes of PVCs this night, bigeminy, trigeminy, couplets and quadgeminy. Occurrences of PVCs did not increase when toileting. Pt slept off and on through the night. Will continue to monitor.
[2020-06-24] MEDS: EZETIMIBE 10 MG TABLET PO SCH (08:28)
[2020-06-24] MEDS: LACTOBACILLUS RHAMNOSUS GG 1 CAPSULE. PO SCH (08:28)
[2020-06-24] MEDS: FINASTERIDE 5 MG TABLET. PO SCH (08:28)
[2020-06-24] MEDS: AZITHROMYCIN 250 MG TABLET. PO SCH (08:28)
[2020-06-24] MEDS: buPROPion SR 150 MG TABLET.SA PO SCH (08:28)
[2020-06-24] MEDS: BISACODYL TAB 5 MG TABLET.DR. PO SCH (08:28)
[2020-06-24] MEDS: POLYETHYLENE GLYCOL 3350 17 GM PACKET. PO SCH (08:29)
[2020-06-24] MEDS: NYSTATIN TOPICAL POWDER 15GM BOTTLE. TP SCH (08:30)
--- NOTE | 2020-06-24 10:23 | NUR ---
PATIENT LEFT AMA. PATIENT WAS PLEASANT BUT STATED THAT "I WANT TO GET OUT OF HERE" PATIENT SIGNED AMA FORM. DR FLORES NOTIFIED. PATIENT HAS ALL BELONGINGS WITH PT AT TIME OF DISMISSAL. PATIENT AMBULATED OFF OF UNIT ACCOMPANIED BY STAFF.
== END 2020-06-24 10:23 | disposition left against medical advice (07) | DRG 177 ==
LOC: ER 17:02 → 1 SOUTH 22:10
PROVIDERS: ADMIT Internal Medicine; ATTEND Internal Medicine
DX: J15.6 Pneumonia due to other Gram-negative bacteria (principal); J96.90 Respiratory failure, unspecified, unspecified whether with hypoxia or hypercapnia; I50.33 Acute on chronic diastolic (congestive) heart failure; E87.2 Acidosis; I48.20 Chronic atrial fibrillation, unspecified; J44.1 Chronic obstructive pulmonary disease with (acute) exacerbation; J44.0 Chronic obstructive pulmonary disease with (acute) lower respiratory infection; I13.0 Hypertensive heart and chronic kidney disease with heart failure and stage 1 through stage 4 chronic kidney disease, or unspecified chronic kidney disease; I24.8 Other forms of acute ischemic heart disease; J15.9 Unspecified bacterial pneumonia; I48.91 Unspecified atrial fibrillation; E78.00 Pure hypercholesterolemia, unspecified; E83.42 Hypomagnesemia; D64.9 Anemia, unspecified; N18.9 Chronic kidney disease, unspecified; F41.9 Anxiety disorder, unspecified; F17.210 Nicotine dependence, cigarettes, uncomplicated; I25.10 Atherosclerotic heart disease of native coronary artery without angina pectoris; E78.5 Hyperlipidemia, unspecified; I73.9 Peripheral vascular disease, unspecified; Z85.3 Personal history of malignant neoplasm of breast; Z85.118 Personal history of other malignant neoplasm of bronchus and lung; Z90.49 Acquired absence of other specified parts of digestive tract; Z88.7 Allergy status to serum and vaccine; Z88.8 Allergy status to other drugs, medicaments and biological substances; Z82.49 Family history of ischemic heart disease and other diseases of the circulatory system; Z85.51 Personal history of malignant neoplasm of bladder; Z79.01 Long term (current) use of anticoagulants; Z95.810 Presence of automatic (implantable) cardiac defibrillator
CPT/HCPCS: 36415; 71046; 80048; 80053; 81001; 82553; 83605; 83735; 83880; 84484; 85025; 85027; 85610; 85730; 87040; 93005; 93970; 94640; 96365; 96375; 97163; J0456; J0696; J1100; J3475; J3490; 97116; 97530; 99285-25; J7030

== ENCOUNTER → 2021-05-03 | Outpatient (CLI) | payer MEDICARE, OTHER ==
[~2021-05-03] MED LIST changes: +ATORVASTATIN CA80 MG PO; +BISA5TAB4 PO; +BUPR150T11 PO; +DICY10CA3 PO; +DIGO125T17 PO; +EZET10TA20 PO; +FINA5TAB4 PO; +FURO20TA3 PO; +IBUP400T18 PO; +LISI2.5T12 PO; +MELA3TAB4 PO; +MV-M1TAB7 PO; +RIVA20TA2 PO; +ROPI0.254 PO; +TAMS0.4C97 PO
--- NOTE | 2021-05-03 11:01 | RAD ---
History: Routine digital2-D screening mammography. Palpable lump and itching in the left breast in a male patient PROCEDURE: [Routine 2-D CC and MLO views of both breasts are obtained.] The images were also evalua gloria with computer-aided detection and the CAD results were analyzed. Previous: None available. FINDINGS: Bilateral diagnostic mammogram: There are minimal scattered fibroglandular densities (density level B).Flame-shaped retroareolar dens ity is seen in the left breast more prominent as compared to the right. There are no suspicious joseph s, suspicious microcalcifications or areas of architectural distortion or skin and nipple appears int act. Left breast ultrasound was also performed. Left breast ultrasound: Targeted sonographic evaluation of the left breast is performed and images are obtained. Behind the l eft nipple in the area of palpable concern consistent with gynecomastia. Comparison images of the right breast was also obtained which demonstrated similar findings to a less er extent. IMPRESSION: Mammogram and ultrasound findings consistent with gynecomastia. Patient may be followed up clinically . BI-RADS Category 1: Negative. Patient was entered into the reminder system with a target due date for next screening mammogram "Our facility is accredited by the [employer] Mammography [employer]." A mammogram does not have 100% sensitivity and therefore a negative imaging study should not delay fu rther work up of a suspicious abnormality. "Our facility is accredited by the [employer] Mammography [employer]." Electronically signed by: Millie Carrillo MD (05/03/2021 10:59 AM) [id number]
== END ==
LOC: US 09:50
PROVIDERS: ATTEND Internal Medicine Hematology & Oncology
DX: N63.20 Unspecified lump in the left breast, unspecified quadrant (principal); R92.8 Other abnormal and inconclusive findings on diagnostic imaging of breast
CPT/HCPCS: 77066; 76642-50